=== PATIENT | male | born 1980 | race Asian ===

== ENCOUNTER 2021-12-02 17:02 | Emergency (ER) | payer BC ==
[~2021-12-02] VITALS: Ht 172.7 cm; Wt 77.3 kg
[2021-12-02 17:45] LABS: BASO # 0.1 K/mm3 (0.0-0.2); BASO % 0.6 % (0.0-2.0); EOS # 0.2 K/mm3 (0.0-0.7); EOS % 1.8 % (0.0-4.0); GRAN # 5.6 K/mm3 (1.4-6.5); GRAN % 67.7 % (42.2-75.2); HEMATOCRIT 38.6 % (42.0-52.0); HEMOGLOBIN 13.4 g/dl (13.5-18.0); LYMPH # 1.8 K/mm3 (1.2-3.4); LYMPH % 21.6 % (20.0-51.0); MEAN CELL VOLUME 88 fl (80.0-100.0); MEAN CORPUSCULAR HEMOGLOBIN 31 pg (27-31); MEAN CORPUSCULAR HGB CONC 35 g/dl (33.0-37.0); MEAN PLATELET VOLUME 9.2 fl (7.4-10.4); MONO # 0.6 K/mm3 (0.1-0.6); MONO % 7.8 % (1.7-9.3); PLATELET COUNT 238 K/mm3 (130-400); RED BLOOD COUNT 4.39 M/mm3 (4.20-5.60); REDCELL DISTRIBUTION WIDTH-CV 12.1 % (11.5-14.5)
[2021-12-02 18:16] LABS: COLLECTION METHOD CLEAN CATCH
[2021-12-02 18:21] LABS: ALANINE AMINOTRANSFERASE 21 U/L (0-55); ALBUMIN 4.3 gm/dL (3.5-5.0); ALKALINE PHOSPHATASE 90 U/L (40-150); ANION GAP 13 mmol/L (7-16); AST,SGOT 21 U/L (5-34); BILIRUBIN,TOTAL 0.4 mg/dL (0.2-1.2); BLOOD UREA NITROGEN 12 mg/dL (9-21); CALCIUM 9.6 mg/dL (8.4-10.2); CARBON DIOXIDE 24 mmol/L (22-29); CHLORIDE 102 mmol/L (98-107); CREATININE, serum 0.94 mg/dL (0.72-1.25); GLUCOSE 105 mg/dL (70-99); POTASSIUM 4.1 mmol/L (3.5-4.5); SODIUM 139 mmol/L (136-145)
[2021-12-02 18:22] LABS: ALCOHOL(ethanol),MEDICAL < 10 mg/dL (0-10)
[2021-12-02 18:27] LABS: PH 7 (5-8); SQUAMOUS EPITHELIAL None Seen /hpf (0-10); URINE APPEARANCE Clear (CLEAR/HAZY); URINE BACTERIA None Seen /hpf (NONE SEEN); URINE BILIRUBIN Negative (NEGATIVE); URINE BLOOD Negative (NEGATIVE); URINE COLOR Yellow (YELLOW); URINE GLUCOSE Negative (NEGATIVE); URINE KETONE Negative (NEGATIVE); URINE LEUKOCYTE ESTERASE Negative (NEGATIVE); URINE NITRATE Negative (NEGATIVE); URINE PROTEIN(semi-quant) Negative (NEGATIVE); URINE RBC 0-2 /hpf (0-2); URINE UROBILINOGEN Negative (NEGATIVE)
[2021-12-02 18:36] LABS: TRICYCLIC ANTIDEPRESS URINE NEGATIVE
[2021-12-03 04:47] VITALS: BP 123/84; PULSE 82; TEMP 98
== END 2021-12-03 05:01 | disposition home or self-care (01) ==
LOC: COL.ER 17:02
PROVIDERS: Nurse Practitioner Family
DX: T62.2X1A Toxic effect of other ingested (parts of) plant(s), accidental (unintentional), initial encounter (principal)
CPT/HCPCS: J2060; J7030

== ENCOUNTER 2022-12-31 06:49 | Emergency (ER) | payer BC ==
[~2022-12-31] VITALS: Ht 180.3 cm; Wt 73.6 kg
[2022-12-31 06:56] VITALS: TEMP 96.6
[2022-12-31] MEDS ORDERED: NAPROSYN500 MG PO (07:58)
[2022-12-31] MEDS ORDERED: ROBAXIN 50500 MG/TAB PO (07:58)
[2022-12-31 08:30] VITALS: BP 137/91; PULSE 71
== END 2022-12-31 08:33 | disposition home or self-care (01) ==
LOC: COL.ER 06:49
DX: S43.005A Unspecified dislocation of left shoulder joint, initial encounter (principal); S80.212A Abrasion, left knee, initial encounter; S50.812A Abrasion of left forearm, initial encounter; W01.0XXA Fall on same level from slipping, tripping and stumbling without subsequent striking against object, initial encounter; Y93.02 Activity, running
CPT/HCPCS: J3010

== ENCOUNTER 2023-11-05 14:09 | Emergency (ER) | payer BC ==
[~2023-11-05] VITALS: Ht 180.3 cm; Wt 75.0 kg
[~2023-11-05 14:09] MED LIST: NAPROSYN500 MG PO; ROBAXIN 50500 MG/TAB PO
[2023-11-05 14:15] VITALS: TEMP 98.4
[2023-11-05] MEDS ORDERED: fentaNYL 50 MCG/ML 2 ML VIAL IV ONE ×2 (15:15→16:30)
[2023-11-05 15:21] LABS: BASO % 0.3 % (0.0-2.0); EOS # 0.1 K/mm3 (0.0-0.7); GRAN # 8.2 K/mm3 (1.4-6.5); HEMATOCRIT 36.2 % (42.0-52.0); HEMOGLOBIN 12.3 g/dl (13.5-18.0); LYMPH # 1.1 K/mm3 (1.2-3.4); LYMPH % 10.5 % (20.0-51.0); MEAN CELL VOLUME 91 fl (80.0-100.0); MEAN CORPUSCULAR HEMOGLOBIN 31 pg (27-31); MEAN CORPUSCULAR HGB CONC 34 g/dl (33.0-37.0); MEAN PLATELET VOLUME 8.9 fl (7.4-10.4); MONO % 9.8 % (1.7-9.3); PLATELET COUNT 284 K/mm3 (130-400); REDCELL DISTRIBUTION WIDTH-CV 11.5 % (11.5-14.5)
[2023-11-05 15:41] LABS: ALANINE AMINOTRANSFERASE 18 U/L (0-55); ALBUMIN 3.9 gm/dL (3.5-5.0); ALKALINE PHOSPHATASE 87 U/L (40-150); ANION GAP 12 mmol/L (7-16); AST,SGOT 20 U/L (5-34); BILIRUBIN,TOTAL 0.6 mg/dL (0.2-1.2); BLOOD UREA NITROGEN 11 mg/dL (9-21); CARBON DIOXIDE 25 mmol/L (22-29); CHLORIDE 97 mmol/L (98-107); CREATININE, serum 0.88 mg/dL (0.72-1.25); GLUCOSE 123 mg/dL (70-99); LIPASE 10 U/L (8-78); POTASSIUM 3.9 mmol/L (3.5-4.5); SODIUM 134 mmol/L (136-145); TOTAL PROTEIN 7.8 gm/dL (6.2-8.1)
[2023-11-05 15:49] LABS: TROPONIN-I < 0.010 ng/mL (0.00-0.033)
[2023-11-05] MEDS ORDERED: NS 100 ML IV SCH (15:53)
[2023-11-05] MEDS ORDERED: Iohexol 300 - 100 ML VIAL IV ONE (15:53)
[2023-11-05] MEDS ORDERED: Ketorolac 15 MG/ML VIAL IV ONE (16:45)
[2023-11-05] MEDS ORDERED: AMOXICILLIN 8751 TAB PO (17:07)
[2023-11-05] MEDS ORDERED: Amoxicillin/Clavulanate K+ 875/125 MG TAB PO ONE (17:15)
[2023-11-05 17:21] VITALS: BP 132/62; PULSE 88
== END 2023-11-05 17:23 | disposition home or self-care (01) ==
LOC: COL.ER 14:09
PROVIDERS: Emergency Medicine
DX: J18.9 Pneumonia, unspecified organism (principal); J90 Pleural effusion, not elsewhere classified; E87.1 Hypo-osmolality and hyponatremia; R10.10 Upper abdominal pain, unspecified
CPT/HCPCS: J1885; J3010; Q9967